=== PATIENT | female | born 1985 | race Caucasian/White ===

== ENCOUNTER 2024-09-14 00:13 | Day surgery (SDC) | payer BC, SELFPAY ==
[2024-09-06 12:48] VITALS: BMI 3800.2
--- OUTSIDE RECORDS SUMMARY | 2024-09-14 00:17 | XMS_ITS | Encounter Summary ---
Author Organization [facility] Address [address] [place] [address] Care Team Providers Care Veneer Stock Grader Name Role Phone Unavailable Primary Care Provider Unavailabl e Encounter Details Date Type Department Care Team (Late st Contact Info) Description 03/20/2024 Lab Requisition [facility] - DermPath Lab [address] [place] [id number] Shantelle Terrell PA [address] [place] [address] Social History Tobacco Use Types Packs/Day Years Used Date Smoking Tobacco: Never Assessed Sex and Gender Information Value Date Recorded Sex Assigned at Not on file Gender Identity Not on file Sexual Orientation Not on file documented as of this encounter Plan of Treatment Not on file documented as of this encounter Procedures Procedure Name Priority Date/Time Associated Diagnosis Comments DERMATOPATHOLOGY Routine 03/20/2024 11:0 6 AM CDT documented in this encounter Results * DERMATOPATHOLOGY (03/20/2024 11:06 AM CDT) Case Report Dermatopathology Report Case: [id number] Authorizing Provider: Shantelle Terrell PA Collected: 03/20/2024 11:06 AM Ordering Location: [facility] - Received: 03/20/2024 03:21 PM DermPath Lab Pathologist: Lillie Gamez MD Specimen: Skin, left upper abdomen 2:21 PM CDT DERMATOPATHOLOGY LABORATORY Final Diagnosis Specimen A. SKIN, left upper abdomen: COMPOUND MELANOCYTIC NEVUS (D22.5) POST-INFLAMMATORY PIGMENT ALTERATION (L81.9) 4 2:21 PM CDT DERMATOPATHOLOGY LABORATORY Clinical History Nevus R/O Atypia 4 2:21 PM CDT DERMATOPATHOLOGY LABORATORY Gross Description Specimen A: Received is one formalin filled container labeled with the patient's name and designated left upper abdomen. The specimen consists of a shave biopsy measuring 9x5x1 mm. Jar 0. 2:21 PM T DERMATOPATHOLOGY LABORATORY Microscopic Description Specimen A. SKIN, left upper abdomen: There are nests of melanocytes at the dermal-epidermal junction and within the dermis. Sections show abundant melanin within melanophages around the superficial vascular plexus. 4 2:21 PM CDT DERMATOPATHOLOGY LABORATORY Disclaimer An external and internal positive and negative controls are appropriate for the histochemical, immunohistochemical and immunofluorescence stain(s) in this case (if any), except where stated explicitly. The performance characteristics of the stain(s) cited in this report were developed and its performance characteristic determined by the Dermatopathology Laboratory at [facility], directed by Dr. Rosalinda Gamez. These tests need not be, and therefore are not, approved by the [place] Food and Drug Administration. The tests are used for clinical purposes. Billing Codes Specimen Charges Stain Charges 60182 1 4 2:21 PM CDT DERMATOPATHOLOGY LABORATORY Embedded Images 2:21 PM CDT DERMATOPATHOLOGY LABORATORY Pathology/Cytolo gy TISSUE SPECIMEN FROM SKIN / Unknown 03/20/2024 11:06 AM CDT 03/20/2024 3:21 PM CDT Sh[facility] - PATHOLOGY/CYTO LOGY ORDERABLES DERMATOPATHOLOGY LABORATORY [facility] - Department of Dermatology [address], [address] [phone] documented in this encounter Visit Diagnoses Not on filedocumented in this encounter
--- OUTSIDE RECORDS SUMMARY | 2024-09-14 00:17 | XMS_ITS | Clinical Summary ---
Author Organization [facility] Address [address] [place] [address] Care Team Providers Care Clinical Documentation Manager Name Role Phone Unavailable Primary Care Provider Unavailabl e Source Comments [facility] [employer],non-owned Affiliates and Associated Physician Practices is amultiple site organization consisting of ambulatory clinics and hospital sitesin [place], [place], [place] and [place]. This disclosure is being madepursuant to the Care Everywhere program and may not contain all information available regarding this patient. Last updated 18.[facility] [employer] Social History Tobacco Use Types Packs/Day Years Used Date Smoking Tobacco: Never Assessed Sex and Gender Information Value Date Recorded Sex Assigned at Not on file Gender Identity Not on file Sexual Orientation Not on file Plan of Treatment Health Maintenance Due Date Last Done Comments PAP SMEAR 1985 HIV SCREENING 10/23/1999 HEPATITIS C SCREENING 10/18/2002 DTAP/TDAP/TD VACCINES (1 - Tdap) 10/23/2003 HEPATITIS B VACCINE (1 of 3 - 19+ 3-dose series) 10/23/2003 COVID-19 VACCINE (2023-2 5 season) 2024 INFLUENZA VACCINE (#1) 2024 DEPRESSION SCREENING 06/27/2024 ZOSTER VACCINE (1 of 2) 2034 HIB VACCINE Aged Out No longer eligi ble based on patient's age to complete this topic HPV VACCINE Aged Out No longer eligi ble based on patient's age to complete this topic MENINGOCOCCAL (Group B) VACC INE SHARED DECISION-MAKING Aged Out No longer eligibl e based on patient's age to complete this topic MENINGOCOCCAL GROUPS A/C/Y/W VACCINE Aged Out No longer eligible b ased on patient's age to complete this topic PNEUMOCOCCAL VACCINE Aged Out No long er eligible based on patient's age to complete this topic Shruti Mcmullen Personal/Family Self 1985
--- OUTSIDE RECORDS SUMMARY | 2024-09-14 00:17 | XMS_ITS | Clinical Summary ---
Author Organization [facility] Address [address] [place] [id number] Care Team Providers Care Gluing Pressman Name Role Phone Unavailable Primary Care Provider Unavailabl e Social History Tobacco Use Types Packs/Day Years Used Date Smoking Tobacco: Never Assessed Comments Unknown Sex and Gender Information Value Date Recorded Sex Assigned at Not on file Legal Sex Female 6:46 PM CDT Gender Identity Not on file Sexual Orientation Not on file Plan of Treatment Health Maintenance Due Date Last Done Comments Cervical Cancer Screening Pa p Smear (Age 30 to 64) Every 3 Years 1984 Annual Physical 10/23/1987 Hepatitis C 2002 DTaP, Tdap and Td Vaccines ( 1 - Tdap) 10/23/2003 Hepatitis B Vaccines (1 of 3 - 19+ 3-dose series) 10/23/2003 Cervical Cancer Screening Pa p with HPV Testing (Age 30 to 64) Every 5 Years 2014 Cervical Cancer Screening with HPV 2014 COVID-19 Vaccine (2023-2 5 season) 2024 Influenza Adult (#1) 2024 HPV Vaccines Aged Out No longer eligi ble based on patient's age to complete this topic Meningococcal B Vaccine Aged Out No l onger eligible based on patient's age to complete this topic Meningococcal Vaccine Aged Out No paul linda eligible based on patient's age to complete this topic Pneumococcal Vaccine: Pediat rics (0 to 5 Years) and At-Risk Patients (6 to 64 Years) Aged Out No longer eligible b ased on patient's age to complete this topic RSV Immunizations Under 20 Months Aged Out No longer eligible based on patient's age to complete this topic
[2024-09-14 11:15] VITALS: BP 107/64; PULSE 110; RESP 18; TEMP 36.1; O2SAT 100; BMI 25.9
[2024-09-14 11:20] LABS: BEDSIDEPREGUCG Negative (Negative)
[2024-09-14] MEDS: LACTATED RINGERS 1,000 ML 150 ML IV CONT (11:28)
--- NOTE | 2024-09-14 11:43 | WPDANESEPPF ---
Anes - Initial Pre Proc Eval Procedure: Operation Date: 09/14/24 12:30 Proposed Procedures p Esophagogastroduodenoscopy & Colonoscopy - Ernesto Kaba MD Date/Time: 09/14/24 11:43 Surgeon: Ernesto Kaba MD Pre Op Diagnosis: IBS,fecal abnormalities,abd distension Patient Data Age: 38 Gender: F Height: 1.52 m Weight: 60.1 kg Last Vital Signs Temp 36.1 C L 09/14/24 11:15 Pulse 110 H 09/14/24 11:15 Resp 18 09/14/24 11:15 BP 107/64 09/14/24 11:15 Pulse Ox 100 09/14/24 11:15 O2 Del Method Room Air 09/14/24 11:15 Allergies Allergy/AdvReac Type Severity Reaction Status Date / Time levofloxacin Allergy Severe Unknown Verified 09/14/24 11:13 erythromycin base Allergy Unknown Unknown Verified 09/14/24 11:13 Home Medications ?Medication ?Instructions ?Recorded ?Confirmed ?Type cholecalciferol (vitamin D3) 10 10 mcg PO DAILY 07/13/24 09/06/24 History mcg (400 unit) capsule Laboratory Tests 09/14/24 11:15 POC Urine HCG, Qual Negative (Negative) Patient hx anesthesia problems: none Family hx anesthesia problems: post op nausea/vomiting Results Review: All pre-operative results and documents have been reviewed as part of the pre-operative evaluation. [facility] Family History Family History Grandparent Carcinoma of colon Family history of coronary artery disease Social History Social History Years smoked: 10 Smoking status: Current every day smoker Tobacco type: cigarettes and e-cigarettes/vaping Alcohol intake: current Drinks per week: 8 Substance use: never Substance use type: does not use Living arrangements: with family Spiritual care concerns: No Anes - Eval Final PreProcedure Day of Procedure 09/14/24 11:43 Patient weight: normal Heart: regular rate and rhythm Lungs: clear to auscultation Airway: Mallampati scale class II Neurological: alert and oriented Last oral intake: >/= 8 hours ASA classification: II Emergent: no Anesthetic plan: proceed Anesthesia type and monitoring: general GIVS and standard monitoring Results Review: All pre-operative results and documents have been reviewed as part of the pre-operative evaluation. Informed Consent: The patient's anesthetic plan and its attendant risks and benefits were discussed with the patient/family/POA. Questions were solicited and answers provided to the satisfaction of the patient/family/POA.
--- NOTE | 2024-09-14 12:00 | PM.HPGS ---
History of Present Illness History of Present Illness Consent: Risks, benefits, and alternatives have been discussed and questions answered. Patient agrees to proceed with procedure. Chief complaint: IBS,fecal abnormalities,abd distension Narrative: Shruti Mcmullen is a 38 year old female here for first egd and colonoscopy, h/o bloating for years, also ibs. breathing test negative for sibo Review of Systems Review of Systems: All systems reviewed & are unremarkable except as noted in HPI and below PMFSH Family History Family History Grandparent Carcinoma of colon Family history of coronary artery disease Social History Social History Years smoked: 10 Smoking status: Current every day smoker Tobacco type: cigarettes and e-cigarettes/vaping Alcohol intake: current Drinks per week: 8 Substance use: never Substance use type: does not use Living arrangements: with family Spiritual care concerns: No Meds Home Medications and Allergies Home Medications ?Medication ?Instructions ?Recorded ?Confirmed ?Type cholecalciferol (vitamin D3) 10 10 mcg PO DAILY 07/13/24 09/06/24 History mcg (400 unit) capsule Allergies Allergy/AdvReac Type Severity Reaction Status Date / Time levofloxacin Allergy Severe Unknown Verified 09/14/24 11:13 erythromycin base Allergy Unknown Unknown Verified 09/14/24 11:13 Vital Signs Vital Signs - 24 hr 09/14/24 11:15 Temperature 97 F L Pulse Rate 110 H Respiratory Rate 18 Blood Pressure 107/64 Pulse Oximetry 100 Oxygen Delivery Room Air Exam Const: General: comfortable and no acute distress HENMT: Face/Nose/Sinus: Normal nares present Eyes: General: appearance normal, both eyes and all related structures Neck: Neck: no JVD Resp: Auscultation: clear to auscultation bilaterally Cardio: Rate: regular rate Rhythm: regular rhythm GI: Inspection: non-distended GI Palp: Yes Soft to palpation Skin: General skin exam: normal color Neuro: General: gait normal Speech: normal speech Extrem: General: normal to inspection Psych: Mental Status: mental status grossly normal Assessment and Plan Assessment and plan (1) Bloating: Code(s): R14.0 - Abdominal distension (gaseous) Status: Acute Assessment and Plan: egd (2) IBS (irritable bowel syndrome): Code(s): K58.9 - Irritable bowel syndrome, unspecified Status: Acute Assessment and Plan: colonoscopy
--- NOTE | 2024-09-14 12:03 | SUR.OPER ---
EGD: end 1159, COLON: start 1203
[2024-09-14 12:14] VITALS: BP 92/44; PULSE 72; RESP 19; O2SAT 100
[2024-09-14 12:34] VITALS: BP 96/45; PULSE 89; RESP 22; O2SAT 100
[2024-09-14 12:44] VITALS: BP 111/58; PULSE 80; RESP 20; O2SAT 100
== END 2024-09-14 12:55 | disposition home or self-care (01) ==
PROVIDERS: Anesthesiology; PCP Family Medicine; Referring Provider Nurse Practitioner; Visit Provider Internal Medicine Gastroenterology
PROC: 0DJ08ZZ Inspection of Upper Intestinal Tract, Via Natural or Artificial Opening Endoscopic (ICD-10-PCS; CPT 45378; principal; 2024-09-14 12:30)
DX: K58.9 Irritable bowel syndrome, unspecified (principal); K64.8 Other hemorrhoids; R14.0 Abdominal distension (gaseous); F17.210 Nicotine dependence, cigarettes, uncomplicated; F17.290 Nicotine dependence, other tobacco product, uncomplicated
CPT/HCPCS: 45378; 43239; 88305; J2003; J2704; J7120

== ENCOUNTER 2024-11-15 10:49 | Outpatient (CLI) | payer BC, SELFPAY ==
--- NOTE | ~2024-11-15 | MM_ITS ---
EXAMINATION: MM screening mik BI w chelsi HISTORY: Screening TECHNIQUE: Craniocaudal and mediolateral oblique 3-D tomosynthesis images were obtained and synthetic 2-D images were generated. CAD analysis was submitted and interpreted. COMPARISON: No prior mammogram is available for comparison at this institution. BREAST PARENCHYMAL COMPOSITION: Not dense: There are scattered areas of fibroglandular density. FINDINGS: There are focal asymmetries in the subareolar location the right breast. There is no mammog raphic evidence for malignancy in the left breast. IMPRESSION: 1. Focal right breast asymmetries. 2. Additional mammographic views and possible breast ultrasound are recommended. BI-RADS Category 0: Incomplete: Needs additional imaging evaluation. Reviewed, dictated and finalized at location B. IMPRESSION: 1. Focal right breast asymmetries. 2. Additional mammographic views and possible breast ultrasound are recommended . BI-RADS Category 0: Incomplete: Needs additional imaging evaluation.
== END 2024-11-15 10:50 | disposition home or self-care (01) ==
LOC: MICIMG 10:50
PROVIDERS: PCP Family Medicine; Visit Provider Obstetrics & Gynecology Gynecology
DX: Z12.31 Encounter for screening mammogram for malignant neoplasm of breast (principal); N64.89 Other specified disorders of breast
CPT/HCPCS: 77063; 77067

== ENCOUNTER 2025-01-11 08:12 | Outpatient (CLI) | payer BC, SELFPAY ==
--- NOTE | ~2025-01-11 | MMUS_ITS ---
EXAMINATION: MM diagnostic mik RT w chelsi, US breast RT limited HISTORY: Follow-up right periareolar asymmetry TECHNIQUE: Additional 3-D tomosynthesis images of the right breast were performed and synthetic 2-D i mages were generated. CAD analysis was submitted and interpreted. High resolution Limited right breas t ultrasound was performed. COMPARISON: 11/15/2024 BREAST PARENCHYMAL COMPOSITION: Not dense: There are scattered areas of fibroglandular density. FINDINGS: MAMMOGRAPHIC FINDINGS: There are no suspicious masses, calcifications or architectural distortion in the right breast to sug gest malignancy. ULTRASOUND: Limited right breast ultrasound: Mildly prominent ducts. No suspicious masses are identified to sugge st malignancy. IMPRESSION: 1. No evidence for malignancy in the right breast. Benign findings. 2. Routine yearly screening mammogram and regular clinical breast examination are recommended. BI-RADS Category 1: Negative Reviewed, dictated and finalized at location B. IMPRESSION: 1. No evidence for malignancy in the right breast. Benign findings. 2. Routine yearly screening mammogram and regular clinical breast examination a re recommended. BI-RADS Category 1: Negative
== END 2025-01-11 08:13 | disposition home or self-care (01) ==
LOC: MICIMG 08:12
PROVIDERS: PCP Family Medicine; Visit Provider Obstetrics & Gynecology Gynecology
DX: R92.8 Other abnormal and inconclusive findings on diagnostic imaging of breast (principal)
CPT/HCPCS: 76642; 77061; 77065; G0279